=== PATIENT | female | born 1955 | race Caucasian/White ===

== ENCOUNTER → 2017-05-31 | Outpatient (CLI) | payer OTHER ==
[~2017-05-31] VITALS: Ht 162.6 cm; Wt 124.7 kg
[~2017-05-31] MED LIST: ACYCLOVIR 400400 MG PO; INVOKANA100 MG PO; LIPITOR 20 MG T20 M1 PO; LISINOPRIL40 MG PO; METFORMIN HCL500 MG PO; MOBIC15 MG PO; MULTI VITAMIN1 EACH PO; NAPROSYN500 MG PO; NORCO 5-325 TA1 EACH PO; PREDNISONE 20 M20 MG PO; PROBIOTIC1 EAC1 PO; SYNTHROID150 MCG PO; TRAMADOL 50 MG50 MG PO; VITAMIN B-12500 MCG PO; VITAMIN D3400 UNIT PO; WELLBUTRIN SR200 MG PO; ZYRTEC10 MG PO
--- NOTE | ~2017-05-31 | HPC ---
[facility] [place] [address] PAIN MANAGEMENT CONSULTATION Name: JANEL DEWEY Room #: REG [facility].#: [id number] Admission: 05/31/17 Attend Phys: Sameer Sellers MD Discharge: Date of : 59 Report #: [id number] THIS REPORT FOR: //name// CC: Yola Sellers DATE OF SERVICE: 05/31/2017 FOLLOWUP COMPLAINT: Pain in the lower back with pain down into the legs and other pain in the lower back. HISTORY OF PRESENT ILLNESS: The patient is a 61-year-old female who has been referred to the pain clinic for evaluation of back, knee and leg pain. The patient has been experiencing pain in the lower portion of her back and pain which has radiated down into her legs. She rates her pain as 3 today. It can rise to the level of 7/10. Pain has been quite problematic since August of this year. She describes it as aching, pulling and periodic. She denies surgery on her back or legs. She notes that because of the pain, activities of daily living such as getting in and out of bed, ambulation and daily tasks are problematic. She has been diagnosed with arthritis. States that she has been doing some physical therapy type activities. She feels that it is "the sciatic nerve that is causing her problems." She does have a past medical history of diabetes, sleep apnea, morbid obesity, depression, anxiety, and hyperlipidemia. The patient states that she has seen Dr. Reddy, who is an orthopedic doctor. He did not recommend surgery at this juncture. She has used prednisone and noticed some improvement in her pain. ALLERGIES: 1. CONTRAST DYE. 2. AZITHROMYCIN. 3. NIACIN. 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 PAST SURGICAL HISTORY: Removal of wisdom teeth in 2009, tonsils and adenoids. 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 She is working at this juncture. Denies use of tobacco. Denies use of alcohol. Denies use of recreational drugs. REVIEW OF SYSTEMS: Questionnaire in the chart, 14-point reveals generally good health, weight changes, wears glasses, shortness of breath, numbness and tingling sensation, depression, thyroid disease, diabetes, excessive thirst, [facility] [address] [place] [address] PAIN MANAGEMENT CONSULTATION Name: JANEL DEWEY Room #: REG [facility]#: [id number] Admission: 05/31/17 Attend Phys: Sameer Sellers MD Discharge: Date of : 59 Report #: [id number] heat and cold intolerance. LABORATORY DATA: Femur, two views right dated 01/28/2017. FINDINGS: No acute fracture or dislocation. There is an enthesopathy at the superior aspect of the greater trochanter. There is a small ossicle posterior to the knee joint. There is mild to moderate osteoarthritis of the lateral joint space of the knee. There is a mild elongated calcified density projected along the ischial tuberosity medial to the femoral neck, which could represent calcium hydroxyapatite deposition versus focal hypertrophic ossification. The joint space is not narrowed and there is mild bony overgrowth of the acetabulum. No joint effusion is identified. There is either a bony ridge versus a mild periosteal reaction along the lateral aspect of the high subtrochanteric right femur. There is a mild to moderate patellofemoral arthrosis. There are no radiopaque foreign bodies. L-spine, AP lateral dated 01/28/2017. FINDINGS: 1. There is facet osteoarthritis at multiple levels of the spine. It is moderate to marked L4-S1 and moderate degree at L3-L4. There is subtle anterolisthesis of L3 on L4 and mild retrolisthesis of L2 on L3. This is consistent with a mild degenerative spondylolisthesis. 2. There are enlarged spinous processes with some degenerative changes at the contact points. 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 3. There is mild concave depression of L1, which is likely chronic in nature. 4. There are calcific densities along the right upper quadrant, most likely represent cholelithiasis. PHYSICAL EXAMINATION: VITAL SIGNS: Blood pressure 121/78, pulse 85, respiratory rate 16, room air saturation 95%. Height 5 feet 4 inches, weight 275 pounds, BMI is 47. GENERAL: Obesity, well developed. EYES: EOM intact, extraocular eye muscles intact. Normal movement. HENT: Normocephalic, atraumatic. NECK: Supple, no bruits, nontender, good range of motion. CHEST: Nonlabored. Clear to auscultation. HEART: Regular rate. Good peripheral pulses in the upper extremity. BACK: The patient has some soreness in the left paralumbar musculature and the area of the left SI outflow tract. No step-offs were noted. Forward flexion caused some increased back pain, left and right lateral bending were limited and cause some increased back discomfort. EXTREMITIES: Muscle strength in the upper extremities is judged to be 5/5 for the major muscle groups in the upper extremities. No edema is noted. Pulses are normal. Lower extremity deep tendon reflexes are trace at the knees and ankles. Notes some discomfort in the groin area bilaterally. Notes increased pain with rotation of her legs in an outward position. Positive straight leg raise on the left. [facility] [address] [place] [address] PAIN MANAGEMENT CONSULTATION Name: JANEL DEWEY Room #: REG [facility].#: [id number] Admission: 05/31/17 Attend Phys: Sameer Sellers MD Discharge: Date of : 59 Report #: [id number] ABDOMEN: Protuberant, somewhat of a pannus in the abdominal area. IMPRESSION: 1. Lumbar radiculopathy with pain radiating down into the left L5 distribution. 2. Hypertension. 3. Hyperlipidemia. 4. Hypothyroidism. 5. Sleep apnea. 6. Osteoarthritis. 7. Morbid obesity. 8. Depression. 9. Anxiety. 10. History of bilateral hip pain. RECOMMENDATIONS: We spoke with the patient regarding her condition. A model was used to indicate the area of probable pathology. A review of her laboratory x-rays was performed. Options were discussed. Given that the patient continues to have pain and discomfort with pain radiating down into her left leg and low back area, she has signs consistent with lumbar radiculopathy/sciatica. She has undergone physical therapy in the past. She still has pain that is problematic. States that she still continues to do the exercises. Finds that activities of daily living are being impacted by this problem. We have given her the opportunity to consider an epidural steroid injection. States that she has had oral steroids, which have been helpful but not usp. Discussed the possibility of increased blood sugars as a result of use of steroid medications. At this juncture, the patient will try Mobic 15 mg 1 p.o. every day. If her pain continues to be problematic, she will return to the pain clinic; at which time, she will undergo an epidural steroid injection. She will call us if she has any problems with her current medications. We would like to thank you for letting us participate in her care. We hope she continues to improve. <ELECTRONICALLY SIGNED> By: Sameer Sellers MD 06/12/17 0837 1335 0120 Sameer Sellers MD /[facility]
[2017-05-31 08:42] VITALS: BP 121/78
== END ==
LOC: PAIN 07:09
DX: M54.16 Radiculopathy, lumbar region (principal); M47.896 Other spondylosis, lumbar region; E11.9 Type 2 diabetes mellitus without complications; J45.909 Unspecified asthma, uncomplicated; I10 Essential (primary) hypertension; E78.5 Hyperlipidemia, unspecified; E03.9 Hypothyroidism, unspecified; G47.33 Obstructive sleep apnea (adult) (pediatric); E66.01 Morbid (severe) obesity due to excess calories; F41.9 Anxiety disorder, unspecified; F32.9 Major depressive disorder, single episode, unspecified

== ENCOUNTER → 2018-03-19 | Outpatient (CLI) | payer OTHER ==
[~2018-03-19] VITALS: Ht 162.6 cm; Wt 121.6 kg
[~2018-03-19] MED LIST changes: -TRAMADOL 50 MG50 MG PO
--- NOTE | ~2018-03-19 | HPC ---
[facility] [address] [address] PAIN MANAGEMENT CONSULTATION Name: JANEL DEWEY [id number] Admission: 03/19/18 Attend Phys: Sameer Sellers MD Discharge: Date of : 59 Report #: [id number] THIS REPORT FOR: //name// CC: Yola Sellers DATE OF SERVICE: 03/19/2018 FOLLOWUP HISTORY: The pain going down into my right leg on the front side. HISTORY: The patient is a 62-year-old female who has been seen in the pain clinic because of pain and discomfort. She has had problems with her back as well as some pain in her knee and leg on the right. She has been experiencing some increasing pain regarding her right side. I feel that it is on the anterior portion. Notes some numbness and tingling in this area. Notes some weakness. The patient continues to walk with a cane as a result of the changes in her leg and muscle strains. Describes an aching and pulling sensation. She has not had surgeries. States that she has been doing exercises to try and strengthen this. She is somewhat concerned that she is losing muscle strength and is less active because of this pain and discomfort. States that she has been diagnosed with osteoarthritis in the right leg. She did at the last visit have pain and discomfort in the lower portion of her back with pain that was radiating down the sciatic area. Feels that the pain has improved somewhat, but the pain in the anterior portion of her right thigh is most problematic at this juncture. She did use prednisone and did note some improvement in her pain. ALLERGIES: CONTRAST DYE, AZITHROMYCIN, NIACIN. CURRENT MEDICATIONS: Probiotic with lactobacillus, vitamin D3 400 units, vitamin B12 500 mcg, multivitamin daily, meloxicam 15 mg, Zyrtec 10 mg, Wellbutrin-SR 200 mg b.i.d., acyclovir 400 mg b.i.d., Levothyroxine 150 mcg, Lipitor 20 mg, and Invokana 100 mg, Zestril 40 mg, metformin 500 mg. PAIN CLINIC ASSESSMENT AND PQRS: 1. History of osteoarthritis. The patient states that she has some arthritic changes in her right lower extremity 2. Rheumatoid arthritis. The patient has not been treated for rheumatoid arthritis. 3. Height 5 feet 4 inches, weight 268 pounds. BMI is 47. 4. Vital Signs: Blood pressure 141/86, pulse 80, respiratory rate 16, room air saturation 96%. 5. Pain intensity 7/10 while standing, 2 while sitting. 6. Fall risk. The patient has not fallen in the last 3 months. 7. Blood thinner. The patient is not on a blood thinning medication. 8. Hypertension. The patient has [place] [address] PAIN MANAGEMENT CONSULTATION Name: JANEL DEWEY [id number] Admission: 03/19/18 Attend Phys: Sameer Sellers MD Discharge: Date of : 59 Report #: [id number] 9. Opioid therapy greater than 6 weeks. The patient is not on an opioid medication on a regular basis. 10. Risk assessment low for use of opioid medications. 11. Functional assessment . 12. Recreational drug use. The patient denies use of recreational drugs. 13. Tobacco: The patient denies use of tobacco. 14. Alcohol: The patient denies use of alcoholic beverages. PHYSICAL EXAMINATION: GENERAL: The patient is a well-developed, somewhat obese white female, appears her stated age. She is alert and oriented x 3. Her affect is appropriate. Speech is fluent. HEENT: Normocephalic, atraumatic. Extraocular eye muscles intact. Sclerae nonicteric. Mucous membranes are moist. NECK: Without bruits, JVD or adenopathy. Good range of motion. CHEST Nonlabored. Clear to auscultation. HEART: Regular rate. Good peripheral pulses. BACK: The patient complains of some pain and discomfort in the left and right area at L5 and the area of L5-S1. Has some pain and discomfort in the right leg with pain that radiates into the anterior portion of the thigh in the L3-L4 distribution. No step-offs were noted. Forward flexion caused some increased back pain. Right bending is limited, left limb bending is somewhat limited. The patient walks with use of a cane. Use her hands go from a sitting to a standing position. EXTREMITIES: Upper extremity muscle strength judged to be 5/5 for the major muscle groups in the upper extremity. No edema is noted. Lower extremity reflexes are trace at the knees. The patient has pain and discomfort, which radiates in the anterior portion of her thigh. Also, complains of some pain and discomfort in the groin area. This is not as problematic today is that which is in the anterior portion of her thigh. IMPRESSION: 1. Lumbar radiculopathy, L3-L4 distribution on the right. 2. Improved pain in the left L5-S1 distribution. 3. Hypertension. 4. Hyperlipidemia. 5. Hypothyroidism. 6. Sleep apnea. 7. Osteoarthritis. 8. Morbid obesity. 9. Depression. 10. Anxiety. 11. History of bilateral hip pain. RECOMMENDATIONS: We discussed treatment options with the patient. She feels that the Mobic medication is helpful. She would like to have this medication [facility] [address] [place] [address] PAIN MANAGEMENT CONSULTATION Name: JANEL DEWEY [facility] [id number] Admission: 03/19/18 Attend Phys: Sameer Sellers MD Discharge: Date of : 59 Report #: [id number] renewed. The patient is trying to stay more mobile. Notes that because of her pain. She has become less mobile and more sedentary. Has continued to do stretching exercises. Has pain, which radiates in the L3-L4 distribution of the right thigh. She would like to undergo an injection in this area. Did have some pain in the L5-S1 area at the last visit. Feels that has quieted down somewhat. Continues to have some pain and discomfort in the right groin area. At this juncture, she will return to the pain clinic at which time she will then undergo an epidural steroid injection. A script for Mobic has been provided. The patient has been advised to monitor her GI status. We explained the possible complications. Use of nonsteroidal anti-inflammatory medications and their effect on the GI system as well as the kidneys. We would like to thank you for letting us participate in her care. We hope she continues to improve. By: [id number] Sameer Sellers MD /PMT
[2018-03-19 10:52] VITALS: BP 141/86
== END ==
LOC: PAIN 07:08
DX: M54.16 Radiculopathy, lumbar region (principal); I10 Essential (primary) hypertension; E78.5 Hyperlipidemia, unspecified; E03.9 Hypothyroidism, unspecified; G47.30 Sleep apnea, unspecified; M19.90 Unspecified osteoarthritis, unspecified site; E66.01 Morbid (severe) obesity due to excess calories; F41.9 Anxiety disorder, unspecified; F32.9 Major depressive disorder, single episode, unspecified; M25.551 Pain in right hip; M25.552 Pain in left hip; Z79.899 Other long term (current) drug therapy

== ENCOUNTER → 2018-03-28 | Outpatient (CLI) | payer OTHER ==
[~2018-03-28] VITALS: Ht 162.6 cm; Wt 120.9 kg
[~2018-03-28] MED LIST changes: +TRAMADOL 50 MG50 MG PO
[2018-03-28 14:36] VITALS: BP 112/64
== END ==
LOC: PAIN 07:29
DX: M54.5 Low back pain (principal); R10.31 Right lower quadrant pain; G89.29 Other chronic pain; Z79.899 Other long term (current) drug therapy; Z87.891 Personal history of nicotine dependence

== ENCOUNTER 2018-08-02 15:42 | Inpatient (IN) | payer OTHER ==
[~2018-08-02] VITALS: Ht 152.4 cm; Wt 122.9 kg
[2018-08-02 15:49] VITALS: BP 138/81
[2018-08-02] MEDS ORDERED: INVOKANA100 MG PO (15:53)
[2018-08-02 16:34] LABS: ABSOLUTE NEUTROPHILS 5.6 thou/uL (1.4-8.2); BASOPHILS 0.5 % (0.0-2.0); EOSINOPHILS 2.3 % (0.0-3.0); HEMATOCRIT 49.7 % (37.0-47.0); LYMPHOCYTES 32.7 % (24.0-44.0); MCH 32.3 pg (26.0-34.0); MCHC 34.1 g/dL (28.0-37.0); MCV 94.6 fL (80.0-100.0); MONOCYTES 9.2 % (1.0-8.0); PLATELET COUNT 256 thou/uL (150-400); POLYS 55.3 % (36.0-66.0); RBC 5.26 mil/uL (4.20-5.00); RDW 13.8 % (10.5-14.5); WBC 10.1 thou/uL (4.0-11.0)
[2018-08-02 16:40] LABS: CALCIUM 8.5 mg/dL (8.5-10.1); CREATININE 0.8 mg/dL (0.6-1.0); POTASSIUM 3.5 mmol/L (3.5-5.1)
[2018-08-02 16:45] LABS: ALBUMIN 3.3 g/dL (3.4-5.0); DIRECT BILIRUBIN 0.1 mg/dL (<0.1-0.3); TOTAL BILIRUBIN 0.5 mg/dL (<0.1-1.0)
[2018-08-02 18:15] LABS: URINE BILIRUBIN NEGATIVE (Negative); URINE BLOOD NEGATIVE (Negative); URINE CLARITY CLEAR; URINE COLOR YELLOW; URINE GLUCOSE-RANDOM* 3+ (Negative); URINE KETONES TRACE (Negative); URINE LEUKOCYTES-REFLEX NEGATIVE (Negative); URINE NITRITE-REFLEX NEGATIVE (Negative); URINE PROTEIN (DIPSTICK) NEGATIVE (Negative); URINE UROBILINOGEN 0.2 E.U./dl (0.2-1.0)
[2018-08-02 20:39] VITALS: BP 139/85
[2018-08-02 20:46] VITALS: BP 116/86
[2018-08-02 22:13] VITALS: BP 137/84
[2018-08-03 03:47] VITALS: BP 115/71
[2018-08-03 05:06] LABS: CALCIUM 9.1 mg/dL (8.5-10.1); CREATININE 0.9 mg/dL (0.6-1.0); POTASSIUM 4.1 mmol/L (3.5-5.1)
[2018-08-03 07:27] VITALS: BP 103/65
--- NOTE | 2018-08-03 07:29 | NUR ---
PT ADMITTED TO ROOM 449 WITH VERTIGO VSS, DISCUSSED POC AND FALL RISK, PT GETS DIZZY JUST TURNING HEAD. CONSULT FOR NEUROLOGY CALLED OFFICE DR.BREMEN JULIAN, MESSAGE LEFT, US TO CALL AGAIN IF NO RETURN CALL. CONTINUE TO MONITOR.
[2018-08-03 14:29] VITALS: BP 92/49
--- NOTE | 2018-08-03 14:45 | NUR ---
ASSUMED CARE AT 0700. PERSISTENT C/O DIZZINESS. DOSE OF MECLIZINE GIVEN TO PT. TOO DIZZY TO GET UP AND STAND. EVEN WITH THE LIGHT OFF, PT FEELS DIZZY THAT ROOM IS SPINNING. HEAD MRI WILL BE PERFORMED TOMORROW. MADE AWARE. CALLED AND CONSULTED FOR THE PT. NO S/S ACUTE DISTRESS NOTED OR REPORTED AT THIS TIME. WILL CONT TO MONITOR FOR ANY CHANGES IN CONDITION.
[2018-08-03 19:03] VITALS: BP 114/58
[2018-08-04 02:54] VITALS: BP 93/58
--- NOTE | 2018-08-04 08:14 | NUR ---
PROGRESS PT VERTIGO SLOWLY RESOLVING NOT DIZZY WHILE LAYING OR MOVING HER HEAD SLOWLY, BUT VERTIGO WITH STANDING AND MOVING HEAD FAST. PT REPORTS FEELING BETTER, DENIES NAUSEA. TO HAVE MRI THIS AM CONTINUE TO MONITOR.
[2018-08-04 08:43] VITALS: BP 125/77
--- NOTE | 2018-08-04 10:43 | NUR ---
ASSUMED CARE AT 0700. STILL HAS PERSISTENT C/O DIZZINESS WHEN STANDS UP. MRI DONE THIS AM SHOWS MILD CHRONIC SMALL VESSEL ISCHEMIC CHANGE. NO ACUTE CVA. WAS CONSULTED FOR THE PT. NO S/S ACUTE DISTRESS NOTED OR REPORTED AT THIS TIME. PT ALERT AND ORIENTED X4 ABLE TO VOICE HER NEEDS. HAD GOOD BREAKFAST. BS 98 THIS AM, NO INSULIN GIVEN. METFORMIN AND MORNING MEDS GIVEN. VSS, LABS REVIEWED. PHYISCAL THERAPIST WORKING WITH PT AT THIS MOMENT TO RELIEF PT'S VERTIGO AND DIZZINESS. OFFERED SUPPORTIVE CARE. ENCOURAGED PT TO VOICE HER NEEDS. REASSESSMENT. LAST BM WAS 3 DAYS AGO. DENIES CONSTIPATION. ENCOURAGED TO LET STAFF KNOW IF SHE NEEDS LAXATIVE. WILL CONT TO MONITOR FOR ANY CHANGES IN CONDITION.
[2018-08-04] MEDS ORDERED: ANTIVERT25 MG PO (12:09)
--- NOTE | 2018-08-04 12:53 | HC ---
[facility] [place] [address] [address] CONSULTATION Name: JANEL DEWEY Room #: 449-I ADM IN .R.#: [id number] Admission: 08/02/18 ������������������ Attend Phys: Cristopher Jose MD Discharge: ������������������ Date of : 59 Report #: [id number] THIS REPORT FOR: //name// CC: Yola Jose DATE OF SERVICE: 08/03/2018 HISTORY OF PRESENT ILLNESS: The patient is a 63-year-old female who yesterday became dizzy. She describes this as a spinning sensation when she lies in bed. She is dizzy whether she turns to the right or the left. She cannot sit up either. It has been difficult for her to eat. She has to eat by nibbling and lying flat. The patient has a longstanding history of ringing of the ears and she may have some hearing loss, but these two symptoms are nothing new. It is the vertigo that is very bothersome to her. In the Emergency Room, the patient got a scopolamine patch and meclizine, none of which have been of any benefit. The patient has no other symptoms aside from the dizziness. She has accompanying nausea and vomiting. PAST MEDICAL HISTORY: Diabetes, hypertension, hyperlipidemia, hypothyroidism. PAST SURGICAL HISTORY: Emily teeth removed. MEDICATIONS: Invokana 100 mg daily, metformin 500 mg t.i.d., lisinopril 40 mg daily, atorvastatin 20 mg daily, levothyroxine 150 mcg daily, acyclovir 400 mg b.i.d., bupropion 200 mg b.i.d., Zyrtec 10 mg b.i.d., multivitamin daily, B12 500 mcg daily, vitamin D3 400 units daily. ALLERGIES: EGGS, CONTRAST DYE, AZITHROMYCIN AND NIACIN. PHYSICAL EXAMINATION: VITAL SIGNS: Temperature 36.4, pulse rate 97, respiratory rate 20, blood pressure 92/49, bedside pulse oximetry 93% on room air. LABORATORY DATA: White blood cell count 10.1, hemoglobin 17, hematocrit 49.7, MCV 94.6, platelet count 256,000. UA trace ketones, 3+ glucose. Chemistry: Sodium 143, potassium 4.1, chloride 107, carbon dioxide 27, BUN 11, creatinine 0.9, GFR 64, glucose 288, calcium 9.1, liver function is normal. NEUROLOGIC: Cranial nerves 2-12 are grossly intact. No nystagmus was seen. Motor exam demonstrates symmetrical strength in the extremities with tone and bulk normal. Reflexes are symmetrical throughout. Coordination demonstrates no evidence of dysmetria. Gait was not tested. IMPRESSION: This patient has vertigo. I have discontinued meclizine and [address] [address] CONSULTATION Name: JANEL DEWEY Room #: 449-I ADM IN M.R.#: [id number] Admission: 08/02/18 ������������������ Attend Phys: Cristopher Jose MD Discharge: ������������������ Date of : 59 Report #: [id number] prescribed diazepam 2 mg 3 times a day. I asked that she get a dose now as she might find this helpful, so that she can at least sit up and have dinner this evening. An MRI of the head is ordered for tomorrow. Up to this point, she has not had any neuro imaging. I will also ask physical therapy to come and see the patient to perform a bilateral Sandra maneuver provided there is nothing on the imaging studies that would account for the vertigo. If the vertigo persists, then she would need to be tested as an outpatient to try to determine the etiology of the vertigo. This could be done at [facility] [place] or she can be referred to for further vestibular testing. Either Dr. Jasso or Dr. Watts will be seeing the patient tomorrow. ��������������������������������������������� <ELECTRONICALLY SIGNED> ���������������������������������������� By: Denise Colon DO ��������������������������������������������� 08/04/18 1253 [id number] 0641 Denise Colon DO /nt
--- NOTE | 2018-08-04 13:33 | NUR ---
PT ADMITTED RELATED TO VERTIGO. CM REVIEWED CHART AND SPOKE WITH CARE TEAM. CM MET WITH PT AT BEDSIDE THIS DAY. PT IS A&0 X4. CM ROLE INTRODUCED. PT INDICATED SHE LIVES ALONE IN A DUPLEX WITH 3 STEPS TO ENTER AND 4 STEPS INSIDE. 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 PT INDICATED NO HH HX. PT HOPES TO RETURN HOME ONCE MEDICALLY STABLE. CARE TEAM INDICATED THAT PT WAS MEDICALLY STABLE TO DC HOME TODAY. PT INDICATED SHE DIDN'T FEEL SHE WAS READY TO DC. PT EVAL WAS ORDERED. CM NOTIFIED PT AND WE ARE AWAITING EVAL. CM TO FOLLOW INDICATED WITH DC PLANNING.
[2018-08-04 14:55] VITALS: BP 119/66
[2018-08-04 20:30] VITALS: BP 132/72
[2018-08-04 22:30] VITALS: BP 147/85
--- NOTE | 2018-08-04 23:39 | NUR ---
2100 PT TRANSFERRED TO [facility] ROOM 225. REPORT GIVEN TO SANTY BAIRD. PT TRANSFERRED VIA W/C ALL BELONGINGS WITH.
--- NOTE | 2018-08-05 07:23 | NUR ---
Pt transferred to unit at 2230.A/OX4.Denies pain on assessment but still reports some dizziness when she moves her head.VSS.Voiding without difficulties. Pt assisted with a shower at [facility],no new skin issues reported.PIV inatct on LAC.Resting quietly at this time with no distress noted. Fall precautions in place. Pt calling appropriately for help.
[2018-08-05 07:45] VITALS: BP 134/68
[2018-08-05 15:22] VITALS: BP 134/68
--- NOTE | 2018-08-05 15:43 | NUR ---
RD consult received for pt with diabetes. BMI 52.9=extreme obesity. Admitted with vertigo. Pt resting with lights out, states hoping to go home today. BG are under control and pt voiced no dietary questions or information regarding diabetes.
--- NOTE | 2018-08-05 16:09 | NUR ---
ELI reviewed chart and spoke with nursing and attending physician. Pt was transferred to [facility] and is progressing towards goals for discharge. Physical therapy evaluated pt and recommended HH services. ELI updated attending physician and pt's nurse. Awaiting final discharge orders at this time. ELI is following to assist as needed with discharge planning.
[2018-08-05 18:50] VITALS: BP 134/68
--- NOTE | 2018-08-05 20:02 | NUR ---
ASSUMED CARE OF PATIENT AT 0715, PATIENT ALERT AND ORIENTED X4. PATIENT UP WITH SBA. PT WORKED WITH PATIENT TODAY. PATIENT C/O HEADACHE THIS AM, TYLENOL GIVEN, COMPLETE RELIEF. PATIENT CONTINUES TO C/O DIZZINESS, BUT IMPROVED. DR BRANCH HERE THIS AM, PATIENT WILL DISCHARGE TO HOME. DISCHARGE PAPERWORK PRINTED AND WILL BE SENT WITH THE PATIENT, ALL PERSONAL BELONGINGS SENT WITH THE PAIENT DISCHARGED AT 0805.
[2018-08-05 20:07] VITALS: BP 134/68
--- NOTE | 2018-08-05 20:09 | NUR ---
Pt A/OX4,up with RW.Denies pain on assessment. No c/o dizziness on assessment. Pt's was ready for dc for sometime awaiting her ride. Friend arrived around 1999,dc instructions reviewed with pt. MADIE.Pt dc with friend,escorted by nursing staff via WC.All personal belongings sent with pt.
== END 2018-08-05 20:05 | disposition home or self-care (01) | DRG 149 ==
LOC: ER 15:42 → EROBS 18:34 → 4W 18:34 → SICU 08-04 23:47
PROVIDERS: Emergency Medicine; Nurse Practitioner Family; ADMIT Hospitalist
DX: H81.10 Benign paroxysmal vertigo, unspecified ear (principal); G61.0 Guillain-Barre syndrome; I10 Essential (primary) hypertension; E11.9 Type 2 diabetes mellitus without complications; G89.29 Other chronic pain; M54.9 Dorsalgia, unspecified; K08.409 Partial loss of teeth, unspecified cause, unspecified class; E03.9 Hypothyroidism, unspecified; Z88.1 Allergy status to other antibiotic agents; Z91.041 Radiographic dye allergy status; Z91.012 Allergy to eggs; Z87.891 Personal history of nicotine dependence
CPT/HCPCS: 10045; 10047; 15002